=== PATIENT | female | born 1970 | race Caucasian/White ===

== ENCOUNTER 2022-03-29 12:58 | Outpatient (CLI) | payer OTHER | END 2022-03-29 12:59 | disposition home or self-care (01) | LOC: CSHMAMMO 12:58 | DX: Z13.820 Encounter for screening for osteoporosis (principal); M81.0 Age-related osteoporosis without current pathological fracture; M85.88 Other specified disorders of bone density and structure, other site | CPT/HCPCS: 77080 ==

== ENCOUNTER 2022-04-14 10:14 | Day surgery (SDC) | payer OTHER ==
[2022-04-12 10:40] VITALS: BMI 22.3
[2022-04-14] MEDS ORDERED: Gabapentin 300 MG CAP ONE (11:19)
[2022-04-14] MEDS ORDERED: Ketorolac Tromethamine 30 MG/ML VIAL ONE (11:20)
[2022-04-14] MEDS ORDERED: Acetaminophen 325 MG TAB ONE (11:20)
[2022-04-14] MEDS ORDERED: PROPOFOL 20 ML ONE (13:21)
[2022-04-14] MEDS ORDERED: Fentanyl 100 MCG/2 ML VIAL ONE ×2 (13:21→17:02)
[2022-04-14] MEDS ORDERED: Lidocaine 1% PF 5 ML VIAL ONE (13:22)
[2022-04-14] MEDS ORDERED: Rocuronium Bromide 10 MG/ML (10ML VIAL) ONE (13:22)
[2022-04-14] MEDS ORDERED: EPINEPHrine 1 MG/ML AMP ONE (13:25)
[2022-04-14] MEDS ORDERED: Bupivacaine PF 0.5% 30 ML VIAL ONE (13:25)
[2022-04-14] MEDS ORDERED: Tranexamic Acid 1,000 MG/10 ML VIAL ONE (13:25)
[2022-04-14] MEDS ORDERED: CEFAZOLIN 2 GM VIAL ONE (14:22)
[2022-04-14] MEDS ORDERED: ePHEDrine Sulfate 50 MG/10 ML VIAL ONE (14:57)
[2022-04-14] MEDS ORDERED: Dexamethasone 4 mg/ml Vial ONE (15:25)
[2022-04-14] MEDS ORDERED: Ondansetron PF 4 MG/2 ML Vial ONE ×2 (15:25→17:03)
[2022-04-14] MEDS ORDERED: Ropivacaine 0.2% HCl/PF 40 ML ONE (15:40)
[2022-04-14] MEDS ORDERED: Glycopyrrolate 0.2 MG/ML 5 ML SYRINGE ONE (16:25)
[2022-04-14] MEDS ORDERED: HYDROcodone/Acetaminophen 5/325 mg Tablet ONE (18:08)
== END 2022-04-14 19:25 | disposition home or self-care (01) ==
LOC: CSHSDC 10:14
PROVIDERS: ATTEND Orthopaedic Surgery
PROC: 0QB64ZZ Excision of Right Upper Femur, Percutaneous Endoscopic Approach (ICD-10-PCS; principal; 2022-04-14)
PROC: 0SQ94ZZ Repair Right Hip Joint, Percutaneous Endoscopic Approach (ICD-10-PCS; principal; 2022-04-14)
DX: S73.191A Other sprain of right hip, initial encounter (principal); M25.851 Other specified joint disorders, right hip; M76.72 Peroneal tendinitis, left leg; F41.9 Anxiety disorder, unspecified; F32.A Depression, unspecified; Z20.822 Contact with and (suspected) exposure to COVID-19; Z79.899 Other long term (current) drug therapy; M24.851 Other specific joint derangements of right hip, not elsewhere classified
CPT/HCPCS: C1713; J0171; J0690; J0735; J1100; J1885; J2405; J2704; J2795; J3010; S0020

== ENCOUNTER 2022-06-11 07:26 | Day surgery (SDC) | payer OTHER ==
[2022-06-10 09:52] VITALS: BMI 22.2
[2022-06-11] MEDS ORDERED: Lidocaine 1% MPF 2 ML VIAL ONE (09:34)
[2022-06-11] MEDS ORDERED: PROPOFOL 40 ML ONE (09:43)
[2022-06-11] MEDS ORDERED: Fentanyl 100 MCG/2 ML VIAL ONE (09:43)
[2022-06-11] MEDS ORDERED: Lidocaine 1% PF 5 ML VIAL ONE (10:20)
[2022-06-11] MEDS ORDERED: PROPOFOL 20 ML ONE (10:48)
== END 2022-06-11 11:56 | disposition home or self-care (01) ==
LOC: CSHSDC 07:26
PROVIDERS: ATTEND Internal Medicine Gastroenterology
PROC: 0DJD8ZZ Inspection of Lower Intestinal Tract, Via Natural or Artificial Opening Endoscopic (ICD-10-PCS; principal; 2022-06-11)
PROC: 0DB58ZX Excision of Esophagus, Via Natural or Artificial Opening Endoscopic, Diagnostic (ICD-10-PCS; principal; 2022-06-11)
PROC: 0DB68ZX Excision of Stomach, Via Natural or Artificial Opening Endoscopic, Diagnostic (ICD-10-PCS; principal; 2022-06-11)
DX: Z12.11 Encounter for screening for malignant neoplasm of colon (principal); K21.00 Gastro-esophageal reflux disease with esophagitis, without bleeding; K64.8 Other hemorrhoids; K63.89 Other specified diseases of intestine; K26.9 Duodenal ulcer, unspecified as acute or chronic, without hemorrhage or perforation; K25.9 Gastric ulcer, unspecified as acute or chronic, without hemorrhage or perforation; K31.9 Disease of stomach and duodenum, unspecified; K31.A0 Gastric intestinal metaplasia, unspecified; Z88.1 Allergy status to other antibiotic agents
CPT/HCPCS: 88305; J2704; J3010